=== PATIENT | female | born 2000 | race Caucasian/White ===

== ENCOUNTER 2019-10-20 09:39 | Inpatient (IN) | payer MEDICAID ==
[~2019-10-20] VITALS: Ht 175.3 cm; Wt 58.6 kg
[2019-10-20] MEDS ORDERED: OLAN10TA6 PO (11:19)
[2019-10-20] MEDS ORDERED: ARIP5TAB8 PO (11:19)
[2019-10-20] MEDS ORDERED: HALOPERIDOL 5 MG TABLET PO PRN (13:45)
[2019-10-20] MEDS ORDERED: ZOLPIDEM TARTRATE 10 MG TABLET PO PRN (13:45)
[2019-10-20 13:50] VITALS: BP 122/61
[2019-10-20] MEDS ORDERED: LOPERAMIDE HCL 2 MG CAPSULE PO PRN (14:15)
[2019-10-20] MEDS ORDERED: PETROLATUM,WHITE 28 GM JELLY TP PRN (14:15)
[2019-10-20] MEDS ORDERED: ALBUTEROL SULFATE HFA 90 MCG/PUFF 8 GM INHALER IH PRN (14:15)
[2019-10-20] MEDS ORDERED: ACETAMINOPHEN 325 MG TABLET PO PRN (14:15)
[2019-10-20] MEDS ORDERED: IBUPROFEN 400 MG TABLET PO PRN (14:15)
[2019-10-20] MEDS ORDERED: DOCUSATE SODIUM 100 MG CAPSULE PO PRN (14:15)
[2019-10-20] MEDS ORDERED: CloNIDine HCL 0.1 MG TABLET PO PRN (14:15)
[2019-10-20] MEDS ORDERED: MAG HYDROX/AL HYDROX/SIMETH ES 30 ML SUSPENSION UDCUP PO PRN (14:15)
[2019-10-20] MEDS ORDERED: NICOTINE 14 MG/24 HOUR PATCH TD PRN (14:15)
[2019-10-20] MEDS ORDERED: MAGNESIUM HYDROXIDE SUSPENSION 30 ML UDCUP PO PRN (14:15)
[2019-10-20] MEDS ORDERED: ONDANSETRON HCL 4 MG TABLET PO PRN (14:15)
[2019-10-20] MEDS ORDERED: GuaiFENesin/D-METHORPHAN [SUGAR-FREE] 200-20MG/10 ML SYRUP UDCUP PO PRN (14:15)
[2019-10-20] MEDS ORDERED: INFLUENZA VIRUS VACCINE QVS 2019-20 (3YR+)/PF 60 MCG/0.5 ML SYRINGE IM ONE (14:45)
[2019-10-20 16:06] VITALS: BP 118/88
[2019-10-21 06:09] VITALS: BP 100/74
[2019-10-21] MEDS: NICOTINE 21 MG/24 HOUR PATCH TD SCH (08:52)
[2019-10-21 08:59] LABS: BASOPHILS % (AUTO) 0.5 % (0.0-2.0); EOSINOPHILS % (AUTO) 2.6 % (1.0-6.0); HEMATOCRIT 39.4 % (36-46); HEMOGLOBIN 12.9 g/dL (12.0-16.0); LYMPHOCYTES # (AUTO) 2.7 K/uL (1.0-4.8); LYMPHOCYTES % (AUTO) 58.9 % (22.0-44.0); MEAN CORPUSCULAR HEMOGLOBIN 30.1 pg (26.0-34.0); MEAN CORPUSCULAR HGB CONC 32.7 G/dL (31.0-37.0); MEAN CORPUSCULAR VOLUME 92 fL (80-100); MONOCYTES # (AUTO) 0.5 K/uL (0.1-1.0); NEUTROPHILS # (AUTO) 1.3 K/uL (1.8-7.7); PLATELET COUNT (AUTO) 215 K/uL (150-450); RED BLOOD CELL COUNT(AUTO) 4.28 MIL/uL (4.00-5.20); RED CELL DISTRIBUTION WIDTH 13.5 % (11.5-14.5)
[2019-10-21 09:38] LABS: ALANINE AMINOTRANSFERASE 22 U/L (12-78); ALBUMIN 3.2 g/dL (3.4-5.0); ALKALINE PHOSPHATASE 46 U/L (46-116); ANION GAP 6 mmol/L (8-16); ASPARTATE AMINOTRANSFERASE 22 U/L (15-37); BILIRUBIN,TOTAL 0.3 mg/dL (0.1-1.0); CALCIUM, TOTAL 8.9 mg/dL (8.8-10.5); CARBON DIOXIDE 26 mmol/L (22-29); CHLORIDE 106 mmol/L (98-107); CREATININE 0.76 mg/dL (0.60-1.30); FREE T4 (FREE THYROXINE) 1.24 ng/dL (0.76-1.46); GLOMERULAR FILTR. RATE CALC > 60 mL/min (>60); GLUCOSE,RANDOM 73 mg/dL (70-110); HCG,QUANTITATIVE < 1 mIU/mL (0-6); POTASSIUM 4.1 mmol/L (3.5-5.1); SODIUM SERUM 138 mmol/L (136-145); THYROID STIMULATING HORMONE 0.66 uIU/mL (0.36-3.74); TOTAL PROTEIN, SERUM 6.2 g/dL (6.4-8.2); UREA NITROGEN, BLOOD 6 mg/dL (7-18)
[2019-10-21] MEDS: ARIPiprazole 5 MG TABLET PO SCH (13:28)
[2019-10-21 16:44] VITALS: BP 100/74
[2019-10-21] MEDS: LORazepam 1 MG TABLET PO PRN (16:45)
[2019-10-21] MEDS ORDERED: MIRTAZAPINE 15 MG TABLET PO SCH (21:00)
[2019-10-22 05:49] VITALS: BP 126/68
[2019-10-22] MEDS: ARIPiprazole 5 MG TABLET PO SCH (09:56)
[2019-10-22] MEDS: NICOTINE 21 MG/24 HOUR PATCH TD SCH (10:06)
[2019-10-22 16:30] VITALS: BP 146/102
[2019-10-22] MEDS: LORazepam 1 MG TABLET PO PRN (16:35)
[2019-10-22] MEDS: MIRTAZAPINE 15 MG TABLET PO SCH (20:32)
[2019-10-23 07:01] VITALS: BP 123/73
[2019-10-23] MEDS: ARIPiprazole 5 MG TABLET PO SCH (08:32)
[2019-10-23] MEDS: NICOTINE 21 MG/24 HOUR PATCH TD SCH (08:32)
[2019-10-23 08:58] VITALS: BP 122/71
[2019-10-23 16:12] VITALS: BP 114/69
[2019-10-23] MEDS: LORazepam 1 MG TABLET PO PRN (17:05)
[2019-10-23] MEDS ORDERED: MIRT30 PO (19:40)
[2019-10-23] MEDS: MIRTAZAPINE 15 MG TABLET PO SCH (20:56)
[2019-10-24 06:29] VITALS: BP 117/61
[2019-10-24 08:22] VITALS: BP 134/107
[2019-10-24] MEDS: ARIPiprazole 5 MG TABLET PO SCH (08:48)
[2019-10-24] MEDS: NICOTINE 21 MG/24 HOUR PATCH TD SCH (08:49)
[2019-10-24] MEDS ORDERED: MIRT-92 PO (11:51)
[2019-10-24] MEDS ORDERED: MIRTAZAPINE 15 MG TABLET PO SCH (21:00)
== END 2019-10-24 11:43 | disposition home or self-care (01) | DRG 751 ==
LOC: B3A 13:08
PROVIDERS: ADMIT Psychiatry & Neurology Psychiatry; ATTEND Psychiatry & Neurology Psychiatry
DX: F33.2 Major depressive disorder, recurrent severe without psychotic features (principal); R45.851 Suicidal ideations; F12.10 Cannabis abuse, uncomplicated; F15.10 Other stimulant abuse, uncomplicated; F17.200 Nicotine dependence, unspecified, uncomplicated; F41.9 Anxiety disorder, unspecified; G47.00 Insomnia, unspecified; R45.87 Impulsiveness; K59.00 Constipation, unspecified; M79.7 Fibromyalgia; Z59.0 Homelessness; Z79.899 Other long term (current) drug therapy
CPT/HCPCS: 84439; 84443